=== PATIENT | male | born 1950 | race Caucasian/White ===

== ENCOUNTER 2023-10-28 08:46 | Emergency (ER) | payer MEDICARE, OTHER, SELFPAY ==
[2023-10-28] VITALS (7 sets, daily range): BP systolic 127–144; BP diastolic 69–78; PULSE 58–64; RESP 18–20; TEMP 36.1–36.6; O2SAT 95–98; BMI 23.2
--- NOTE | 2023-10-28 08:47 | CT_ITS ---
STUDY: CT HEAD STROKE PROTOCOL W/O CONTRAST INJECTION REASON FOR EXAM: Male, 73 years old. Neuro deficit, acute, stroke suspected RADIATION DOSAGE (If Supplied By Facility): CTDIvol = ( 47.06 ) mGy, DLP = ( 872.68 ) mGycm TECHNIQUE: Transaxial CT imaging of the brain was performed without administration of intravenous contrast material. Individualized dose optimization techniques were used for this CT. COMPARISON: No relevant priors. FINDINGS: Normal soft tissue structures. Normal calvarium. There is mild cerebral atrophy with widening of the extra-axial spaces and ventricular dilatation. Normal white matter tracts of the cerebral hemispheres. Normal basal ganglia and thalami. Normal brainstem. Normal cerebellum. There is no intracranial hemorrhage. There is a hyperdense right middle cerebral artery. Thrombus should be ruled out. Normal visualized paranasal sinuses. ASPECT score: 10 CT/STROKE Brain/Head without Cont IMPRESSION: Hyperdense right middle cerebral artery. Thrombus should be ruled out. Chronic involutional changes of the brain. N.B. : The above Results were Read Back by Mj Simon MD to Veronica Aleman and understanding confirmed on 10/28/2023 09:12:21 (ET). Electronically Signed: Mj Simon MD at 9:13 EDT ,
--- NOTE | 2023-10-28 08:47 | CT_ITS ---
STUDY: CTA HEAD AND NECK WITH CONTRAST REASON FOR EXAM: Male, 73 years old. Neuro deficit, acute, stroke suspected RADIATION DOSAGE (If Supplied By Facility): CTDIvol = ( 16.91 ) mGy, DLP = ( 739.17 ) mGycm TECHNIQUE: CT angiography was performed with a multi-detector CT scanner. Data acquisition was obtained from the skull base through the vertex following intravenous administration of IV 100mL Isovue-[id number]. MIP images were reconstructed from the axial data set. Post-processing of the angiographic images was performed, with multiplanar reformation and 3D reconstruction. Individualized dose optimization techniques were used for this CT. COMPARISON: No relevant priors. FINDINGS: Normal bilateral petrous carotid arteries. Thrombus is seen in the cavernous portion of the right internal carotid artery. Normal left cavernous carotid artery with a normal supraclinoid bifurcation. Normal right A1 segments of the anterior cerebral artery. Normal left A1 segments of the anterior cerebral artery. Normal intact anterior communicating artery (ACOM). Normal bilateral A2 segments of the anterior cerebral arteries. There is evidence of intraluminal thrombus right M1 and M2 segments of the middle cerebral artery. Normal left M1 and M2 segments of the middle cerebral arteries, with a normal M1 bifurcation. Normal right posterior communicating artery (PCOM). Normal left posterior communicating artery (PCOM). Normal bilateral vertebral arteries. Normal basilar artery with a normal basilar bifurcation. The visualized bilateral superior cerebellar (SCA) arteries are normal. Normal bilateral P1, P2 and visualized P3 segments of the posterior cerebral arteries. There is no demonstrated aneurysm of the [place]. AORTIC ARCH: Normal visualized aortic arch. RIGHT CAROTID ARTERIES: There is diffuse thickening of the common carotid artery. Normal right common carotid bulb. Occlusion of the right internal carotid artery from its origin with clot. Normal visualized cervical portion of the right internal carotid artery. Normal origin of the right external carotid artery (ECA). LEFT CAROTID ARTERIES: Normal left common carotid artery (CCA). Normal left common carotid bulb. Normal origin of the left internal carotid (ICA) artery without a hemodynamically significant stenosis. Normal visualized cervical portion of the left internal carotid artery. Normal origin of the left external carotid artery (ECA). VERTEBRAL ARTERIES: Normal bilateral vertebral arteries. CT/STROKE CTA Head AND Neck W/Con IMPRESSION: Diffuse circumferential thickening and narrowing of the right common carotid artery with occlusion of the internal carotid artery at its origin with thrombus. The thrombus extends into the cavernous portion of the right internal carotid artery and extends into the right middle cerebral artery involving both the M1 and M2 segments. N.B. : The above Results were Read Back by Mj Simon MD to Veronica Aleman and understanding confirmed on 10/28/2023 09:25:25 (ET). Electronically Signed: Mj Simon MD at 9:27 EDT ,
--- NOTE | 2023-10-28 08:50 | ED.VIS.STROK ---
HPI History of Present Illness Chief Complaint: Stroke Alert Informant: patient and EMS Narrative Narrative: Patient presents with EMS secondary to left-sided deficits. They were initially called for unresponsive male. He is alert on their arrival but with slurred speech and left-sided deficits. Last known well time was 10 PM. No recent fall or injury. He is not on blood thinners. [facility], [facility] Medical History no medical history no medical history Home Medications NK 10/28/23 [History Last Taken Unknown] Allergy/AdvReac Type Severity Reaction Status Date / Time No Known Allergies Allergy Verified 10/28/23 09:17 Surgical History no surgical history Social History Smoking Status: Never smoker ROS ROS ED Constitutional Constitutional ED: Denies chills or fever(s) Eyes Eyes: Denies change in vision ENT ENT ED: Denies rhinorrhea Cardiovascular Cardiovascular: Denies chest pain or palpitations Respiratory/Chest Respiratory/Chest: Denies cough or dyspnea Gastrointestinal Gastrointestinal: Denies abdominal pain, diarrhea or vomiting Neurologic Neurologic: Reports weakness; Denies headache(s) EXAM Physical Exam Const Vital Signs: 10/28/23 08:48 10/28/23 08:54 10/28/23 09:14 Temperature 97 F L Temperature Source Temporal Pulse Rate 60 Respiratory Rate Blood Pressure 127/74 H Blood Pressure Mean 91 Pulse Ox 95 96 Oxygen Delivery Method Room Air Room Air 10/28/23 09:00 10/28/23 09:30 10/28/23 09:35 Temperature 98 F Temperature Source Pulse Rate 61 59 L 64 Respiratory Rate 20 H 18 18 Blood Pressure 131/69 H 132/77 H 144/78 H Blood Pressure Mean 89 95 100 Pulse Ox 97 98 97 Oxygen Delivery Method Room Air Room Air 10/28/23 10:00 Temperature Temperature Source Pulse Rate 58 L Respiratory Rate 18 Blood Pressure 144/78 H Blood Pressure Mean 100 Pulse Ox 98 Oxygen Delivery Method Room Air Positive well nourished and well developed General Appearance ED: well developed HEENT Reports moist mucous membranes Eyes EOMs intact bilaterally Chest Wall inspection of chest normal and palpation of chest normal Resp normal respiratory effort and clear to auscultation bilaterally Cardio Rate: regular rate Rhythm: regular rhythm GI soft to palpation and non-tender Extremity normal to inspection Neuro oriented x3 Neuro Narrative: See NIH stroke score NIHSS NIHSS Initial: 1a Level of Consciousness: 0 1b LOC Questions (Score 2 if aphasic/stupor): 0 1c LOC Commands (Only score 1st attempt): 0 2 Best Gaze (If aphasic, use reflexive mvmts.): 0 3 Visual: 0 4 Facial Palsy: 2 5 Motor Arm Right (UN = amputation/fusion): 0 5 Motor Arm Left: 4 6 Motor Leg Right: 0 6 Motor Leg Left: 2 7 Limb ataxia (Only + if out of proportion): 0 8 Sensory (Aphasia/stupor=0 or 1, coma=2): 1 9 Best Language: 0 10 Dysarthria (mute, coma=2, intubated=UN): 0 11 Extinction and Inattention (only scored if +): 0 Total Score: 9 MDM MDM MDM Narrative Medical decision making narrative: Patient was met at the EMS bay and sent immediately to CT. Upon return to the room exam is repeated and largely unchanged. IV line established by EMS and blood work has been sent to the lab. EKG obtained to evaluate for cardiac arrhythmia/ischemia. Chest x-ray obtained to evaluate for acute lung pathology, cardiac size, or mediastinal abnormality. Shortly after the patient was seen by myself upon return from CAT scan, I was notified by nursing staff that the patient is starting to move his left arm. Went back to reexamine the patient he still does have left-sided facial weakness. He is able to lift his left arm but still has some difficulty with dexterity. He is able to hold his left leg off the bed. He reports sensation to his left arm and leg are improved at this time as well. History & Record Review Discussion w/independent historian: Patient and Significant other Lab Data Attestation: I reviewed the patient's lab results. Labs: Laboratory Results - last 24 hr 10/28/23 08:52 WBC 8.6 RBC 5.05 Hgb 14.5 Hct 44.9 MCV 88.9 MCH 28.7 MCHC 32.3 RDW Std Deviation 43.3 RDW Coeff of Klaus 13.2 Plt Count 233 MPV 11.3 Immature Gran % (Auto) 0.200 Neut % (Auto) 50.4 Lymph % (Auto) 39.7 [place] % (Auto) 5.9 Eos % (Auto) 3.1 Baso % (Auto) 0.7 Absolute Neuts (auto) 4.3 Absolute Lymphs (auto) 3.41 Nucleated RBC % 0 PT 12.7 INR 1.0 APTT 30.9 Sodium 137 Potassium 4.4 Chloride 109 H Carbon Dioxide 23.0 Anion Gap 5 BUN 25 H Creatinine 1.42 H Estim Creat Clear Calc 41.81 Est GFR (MDRD) Af Amer 63 Est GFR (MDRD) Non-Af 52 L BUN/Creatinine Ratio 17.6 Glucose 125 H Calcium 9.1 Troponin I High Sens 4 Radiography Diagnostic Testing: Clinical Impression(s) from Imaging Studies Brain CT 10/28/23 08:47 IMPRESSION: Hyperdense right middle cerebral artery. Thrombus should be ruled out. Chronic involutional changes of the brain. N.B. : The above Results were Read Back by Mj Simon MD to Veronica Aleman and understanding confirmed on 10/28/2023 09:12:21 (ET). Electronically Signed: Mj Simon MD at 9:13 EDT , ADDENDUM: 10/28/2320 IMPRESSION: Hyperdense right middle cerebral artery. Thrombus should be ruled out. Chronic involutional changes of the brain. N.B. : The above Results were Read Back by Mj Simon MD to Veronica Aleman and understanding confirmed on 10/28/2023 09:12:21 (ET). Electronically Signed: Mj Simon MD at 9:13 EDT , Head/Neck CTA 10/28/23 08:47 IMPRESSION: Diffuse circumferential thickening and narrowing of the right common carotid artery with occlusion of the internal carotid artery at its origin with thrombus. The thrombus extends into the cavernous portion of the right internal carotid artery and extends into the right middle cerebral artery involving both the M1 and M2 segments. N.B. : The above Results were Read Back by Mj Simon MD to Veronica Aleman and understanding confirmed on 10/28/2023 09:25:25 (ET). Electronically Signed: Mj Simon MD at 9:27 EDT , ADDENDUM: 10/28/23933 IMPRESSION: Diffuse circumferential thickening and narrowing of the right common carotid artery with occlusion of the internal carotid artery at its origin with thrombus. The thrombus extends into the cavernous portion of the right internal carotid artery and extends into the right middle cerebral artery involving both the M1 and M2 segments. N.B. : The above Results were Read Back by Mj Simon MD to Veronica Aleman and understanding confirmed on 10/28/2023 09:25:25 (ET). Electronically Signed: Mj Simon MD at 9:27 EDT , Chest X-Ray 10/28/23 09:23 IMPRESSION: Minimal linear left basilar atelectasis. Electronically Signed: Mj Simon MD at 9:57 EDT , EKG Initial EKG: Attestation: I personally reviewed and interpreted this EKG as follows: Interpretation: Sinus Rhythm (Sinus at 63 with no acute ischemia.) Treatment and Re-Evaluation Narrative: CT and CTA of the head reviewed by in-house radiologist. Patient has evidence of a clot in the right MCA. I had originally spoken with the neurologist at [facility] with plan to keep patient here if CTA was negative. I spoke with Dr. Mendez again and he has accepted the patient as a level 1 transfer. We are arranging transport at this time. I spoke with Dr. Simon again. Patient has a narrow right common carotid and a thrombus in the right ICA as well. CBC was normal white count 8.6 with a hemoglobin of 14.5. Differential unremarkable. Coags normal. Portable chest x-ray reveals chronic changes per my interpretation. Radiology interpretation reviewed and agrees. 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
[2023-10-28 09:05] LABS: Absolute Lymphocyte Count 3.41 X10^3/uL (0.83-4.51); Absolute Neutrophil Count 4.3 X10^3/uL (2.0-7.7); Basophil# 0.06 X10^3/uL; Basophil% 0.7 % (0-1); Eosinophil# 0.27 X10^3/uL; Eosinophils% 3.1 % (0-5); Hematocrit 44.9 % (40-54); Hemoglobin 14.5 g/dL (13.0-16.5); Lymphocyte # 3.41 X10^3/ul (0.83-4.51); Lymphocyte % 39.7 % (19-41); Mean Corp Hgb Conc 32.3 g/dL (32-36); Mean Corpuscular Hgb 28.7 pg (27.0-32.0); Mean Corpuscular Volume 88.9 fL (80-94); Mean Platelet Vol. 11.3 fl (6.2-12.0); Monocyte# 0.51 X10^3/uL; Monocyte% 5.9 % (0-10); NRBC Flagged by Analyzer 0 % (0-5); Neutrophil # 4.31 X10^3/uL (2.7-7.7); Neutrophil % 50.4 % (47-70); Platelet Count 233 K/mm3 (150-450); RBC Distribution Width CV 13.2 % (11.6-14.6); RBC Distribution Width SD 43.3 fl (35.1-43.9); Red Blood Count 5.05 M/mm3 (4.6-6.2); White Blood Count 8.6 K/mm3 (4.4-11.0)
--- NOTE | 2023-10-28 09:09 | ED.RN ---
states he has no health problems, doesnt take any medicines, per pt has never had surgery.
[2023-10-28 09:13] LABS: Prothrombin Time (Protime)PT. 12.7 SECONDS (11.7-14.9)
[2023-10-28 09:14] LABS: Partial Thromboplast Time 30.9 Seconds (24.1-36.2)
--- NOTE | 2023-10-28 09:23 | RAD_ITS ---
STUDY: X-RAY CHEST REASON FOR EXAM: Male, 73 years old. Neuro deficit, acute, stroke suspected TECHNIQUE: Single AP portable view of the chest. COMPARISON: None. FINDINGS: Surgical clips are seen overlying the left lung apex. Minimal linear left basilar atelectasis. There is no demonstrated pleural abnormality. Normal size heart. Normal mediastinum and dawna. Normal visualized pulmonary arteries. Normal visualized aortic arch and descending thoracic aorta. There are degenerative changes of the visualized thoracic spine. Normal visualized ribs, clavicles, and shoulders. There is no demonstrated abnormality of the visualized soft tissue structures of the upper abdomen. RAD/Chest 1 View IMPRESSION: Minimal linear left basilar atelectasis. Electronically Signed: Mj Simon MD at 9:57 EDT ,
[2023-10-28 09:30] LABS: Anion Gap 5 (5-15); BUN 25 mg/dL (7-18); BUN/Creat Ratio 17.6 RATIO (10-20); Calcium,Total 9.1 mg/dL (8.5-10.1); Chloride 109 mmol/L (98-107); Creatinine, Serum 1.42 mg/dL (0.70-1.30); EST Glomerular Filtration Rate 52 mL/min (>60); Est Glom Filt Rate - Afr Amer 63 mL/min (>60); Estimated Creatinine Clearance 41.81 ml/min; Glucose 125 mg/dL (74-106); Potassium 4.4 mmol/L (3.5-5.1); Sodium Level 137 mmol/L (136-145); Troponin-I HS 4 pg/mL (3.0-78.0)
--- NOTE | 2023-10-28 09:59 | ED.RN ---
[facility] at bedside
== END 2023-10-28 10:09 | disposition short-term general hospital (02) ==
LOC: ED 09:37
PROVIDERS: Emergency Provider Emergency Medicine; Visit Provider Emergency Medicine
DX: I63.231 Cerebral infarction due to unspecified occlusion or stenosis of right carotid arteries (principal)
CPT/HCPCS: 70450; 70496; 70498; 71045; 80048; 84484; 85025; 85610; 85730; 93005; 99285; Q9967

== ENCOUNTER → 2023-11-16 | Outpatient (CLI) | payer MEDICARE, OTHER, SELFPAY ==
[2023-11-16 11:43] LABS: Red Blood Cells-Urine 0 SEEN /hpf (0-5); Squamous Epithelial Cells - UA 0 SEEN /hpf (0-5)
[2023-11-16 12:19] LABS: Color, Urine Yellow (Yellow); Glucose, Dipstick Normal (Normal); Ketone-Dipstick Negative (Negative); Leukocyte Esterase-Dipstick 25 /ul (Negative); Nitrite-Dipstick Negative (Negative); Occult Blood-Urine Negative /ul (Negative); Protein-Dipstick Negative (Negative); Urine Bilirubin Dipstick Negative (Negative); Urine Clarity Clear (Clear); Urine Urobilinogen Normal (Normal)
[2023-11-16 12:39] LABS: Bacteria 1+ /hpf (None Seen); Mucous, Urine 1+ /hpf (<or=2+); White Blood Cells 0-5 SEEN /hpf (0-5)
== END | disposition home or self-care (01) ==
LOC: LABSPEC 11:40
PROVIDERS: PCP Nurse Practitioner; Referring Provider Nurse Practitioner; Visit Provider Nurse Practitioner
DX: R33.9 Retention of urine, unspecified (principal)
CPT/HCPCS: 81001

== ENCOUNTER → 2024-07-03 | Outpatient (CLI) | payer MEDICARE, SELFPAY ==
[2024-07-03 13:03] LABS: AST(SGOT) 29 U/L (15-37); Alanine Aminotransfer ALT/SGPT 48 U/L (16-61); Albumin, Serum 3.7 g/dL (3.2-5.0); Alkaline Phosphatase 111 U/L (45-117); Anion Gap 5 (5-15); BUN 23 mg/dL (7-18); BUN/Creat Ratio 16.9 RATIO (10-20); Calcium,Total 9.1 mg/dL (8.5-10.1); Chloride 108 mmol/L (98-107); Cholesterol 124 mg/dL (200); Creatinine, Serum 1.36 mg/dL (0.70-1.30); EST Glomerular Filtration Rate 54 mL/min (>60); Est Glom Filt Rate - Afr Amer 66 mL/min (>60); Globulin 3.6 g/dL (2.2-4.2); Glucose 93 mg/dL (74-106); High Density Lipoprotein 59 mg/dL; PSA,Total - Annual Screen 2.91 ng/mL (0.00-4.00); Potassium 4.3 mmol/L (3.5-5.1); Protein, Total 7.3 g/dL (6.4-8.2); Sodium Level 140 mmol/L (136-145); Triglycerides 97 mg/dL; Very Low Density Lipoprotein 19 mg/dL (5-40)
== END | disposition home or self-care (01) ==
LOC: BIMLAB 08:11
PROVIDERS: PCP Internal Medicine; Referring Provider Internal Medicine; Visit Provider Internal Medicine
DX: I63.511 Cerebral infarction due to unspecified occlusion or stenosis of right middle cerebral artery (principal); R33.9 Retention of urine, unspecified; Z12.5 Encounter for screening for malignant neoplasm of prostate